=== PATIENT | male | born 1960 | race Caucasian/White ===

== ENCOUNTER 2018-06-12 04:40 | Emergency (ER) | payer BC, SELFPAY ==
[2018-06-12 04:40] VITALS: BP 122/87; PULSE 83; RESP 22; TEMP 36.6; O2SAT 95; BMI 23.1
--- NOTE | 2018-06-12 04:46 | ED_ITS ---
HPI - Chest Pain General Chief Complaint: Chest Pain Stated Complaint: POSSIBLE HEART ATTACK Time Seen by Provider: 06/12/18 04:41 Source: patient and family Mode of arrival: ambulatory Limitations: no limitations History of Present Illness HPI narrative: 58-year-old male with long history of smoking presents to the emergency department with 7/10 crushing anterior chest pain that started at rest. This is associated with significant nausea, shortness of breath and diaphoresis. His pain radiates from left to right across his chest. He denies any history of cardiac illness. He has had no recent illness. MD complaint: chest pain Onset (ago): minute(s) Time: 04:20 Duration: constant Onset: during rest Pain location: substernal, left chest and right chest Severity: severe Severity scale (1-10): 7 Quality: tightness, aching and heaviness Pain radiation: RUE and LUE Relieving factors: nothing Exacerbating factors: nothing Associated symptoms: nausea, diaphoresis and dyspnea Treatments prior to arrival chest pain: none Related Data Allergies Allergy/AdvReac Type Severity Reaction Status Date / Time No Known Drug Allergies Allergy Verified 06/12/18 05:05 Review of Systems Review of Systems All systems reviewed & are unremarkable except as noted in HPI and below Constitutional Denies chills, Denies fever(s), Denies lethargy and Denies weakness Eyes Denies change in vision, Denies eye discharge, Denies irritation and Denies loss of vision ENT Ears, Nose, Mouth, and Throat: Denies change in voice, Denies neck pain and Denies sore throat Cardiovascular Reports chest pain, Denies irregular heart rhythm, Reports lightheadedness, Denies palpitations, Reports dyspnea, Denies dyspnea on exertion and Denies orthopnea Respiratory Denies cough, Reports dyspnea, Denies dyspnea on exertion and Denies wheezing Gastrointestinal Gastrointestinal: Denies abdominal pain, Denies change in bowel habits, Denies diarrhea, Reports nausea and Denies vomiting Genitourinary Denies hematuria, Denies flank pain, Denies urinary incontinence and Denies urinary urgency Musculoskeletal Denies neck pain Integumentary/Breasts Denies pruritus, Denies erythema, Denies rash and Denies wounds Comments: Diaphoresis Neurologic Denies confusion, Denies loss of vision and Denies weakness Psychiatric Denies anxiety, Denies confusion, Denies depression, Denies homicidal ideation and Denies suicidal ideation Endocrine Denies palpitations Hematologic/Lymphatic Denies easy bruising Allergic/Immunologic Denies wheezing PFSH Social History Smoking Status: Current every day smoker Exam Narrative Exam Narrative: 58-year-old male in severe distress, short of breath, clutching his chest, diaphoretic Initial Vital Signs Initial Vital Signs: Vital Signs Temperature 97.8 F 06/12/18 04:40 Pulse Rate 83 06/12/18 04:40 Respiratory Rate 22 06/12/18 04:40 Blood Pressure 122/87 H 06/12/18 04:40 Pulse Oximetry 95 06/12/18 04:40 Const General: cooperative, well developed and acute distress Nutritional Appearance: well nourished Orientation: alert, awake, oriented x3 and not confused HENMT Head: normocephalic and atraumatic Ears: external ears normal and TM's normal bilaterally Nose: external nose normal and No nasal discharge Face and sinus: sinuses nontender, face symmetric, no sinus tenderness and No dry mucous membranes Mouth: oral mucosae normal and moist mucous membranes Teeth and gingiva: dentition normal Throat: tonsils normal and uvula midline Eyes General: appearance normal, both eyes and all related structures Eyelids: eyelids normal Conjunctivae: conjunctivae normal Sclera: sclerae normal Pupils: PERRL EOM: EOM intact bilaterally Neck Neck: normal visual inspection, trachea midline, No lymphadenopathy, No midline deformity and No JVD Lymphatic: No lymphedema Chest Chest: normal inspection of the chest Resp Effort & Inspection: normal respiratory effort, able to speak in complete sentences, no respiratory distress and no use of accessory muscles Auscultation: clear to auscultation bilaterally, no rales, no rhonchi and no wheezes Cardio Rate: regular rate Rhythm: regular rhythm Heart Sounds: no click, no gallops, no murmurs and no rubs Pulses: normal peripheral pulses GI Inspection: non-distended Palpation: soft, no hepatosplenomegaly, No guarding, No pulsatile mass and No tender Auscultation: normal bowel sounds Back/Spine/Pelvis Back: No CVA tenderness Cervical Spine: cervical ROM normal and No pain with cervical ROM Thoracic/Lumbar Spine: thoracic and lumbar spine normal to inspection Skin General: no rashes or lesions noted, No jaundice, No petechiae and pallor Other: Diaphoretic Neuro General: alert, oriented x3, gait normal and no focal motor deficits Speech: speech normal Extrem General: full ROM, no clubbing, cyanosis or edema, no pedal edema and no calf tenderness Psych Appearance: well kempt Mental Status: mental status grossly normal Attitude: cooperative Thought Content: normal and suicidality Judgment: judgment good Course Orders Ordered: Discontinued Medications Aspirin (Aspirin Chew) 324 mg PO NOW ONE Stop: 06/12/18 04:42 Last Admin: 06/12/18 04:51 Dose: 324 mg Heparin Sodium (Porcine) (Heparin) 4,800 unit IV NOW ONE Stop: 06/12/18 04:42 Last Admin: 06/12/18 05:01 Dose: 4,800 unit Sodium Chloride (Normal Saline 0.9%) 1,000 mls @ 150 mls/hr IV CONT ANDERSON Last Infusion: 06/12/18 05:07 Dose: 150 mls/hr Admin: 06/12/18 04:53 Dose: 150 mls/hr Heparin Sodium/Dextrose (Heparin Drip) 25,000 unit in 500 mls @ 0 mls/hr IV CONT ANDERSON; Protocol Last Admin: 06/12/18 05:13 Dose: 12 units/kg/hr, 19.051 mls/hr Metoprolol Tartrate (Lopressor) 5 mg IV NOW ONE Stop: 06/12/18 04:42 Last Admin: 06/12/18 04:56 Dose: 5 mg Nitroglycerin (Nitrostat) 0.4 mg SL [id number] PRN PRN Reason: Chest Pain Last Admin: 06/12/18 04:57 Dose: 0.4 mg Admin: 06/12/18 04:51 Dose: 0.4 mg Reevaluation(s) Reevaluation #1: pain down to 4/10 after 1 NG Time: 04:52 Consultations Consultation #1: Dr. Salinas ([facility] ED) happy to accept and will activate STEMI protocol Time: 04:53 MDM - Chest Pain Differential Diagnosis Likely stable angina, unstable angina pectoris, atypical chest pain and st elevation myocardial infarction Lab Data Result diagrams: 06/12/18 Unknown 06/12/18 Unknown Lab Results 06/12/18 06/12/18 Range/Units Unknown Unknown WBC 9.8 (4.5-11.0) X10^3/uL RBC 5.73 (4.5-5.9) X10^6/uL Hgb 17.8 H (13.5-17.5) g/dL Hct 52.4 (41-53) % MCV 91.4 (80-100) fL MCH 31.1 (26-34) PG MCHC 34.0 (30-36) % RDW 15.1 H (11.6-14.8) % Plt Count 320 (150-400) X10^3/uL Neut % (Auto) 51.0 (50-75) % Lymph % (Auto) 35.7 (25-40) % [place] % (Auto) 9.1 (3-14) % Eos % (Auto) 2.8 (2-4) % Baso % (Auto) 1.4 (0-2) % Neut # (Auto) 5000 (0742-6097) /uL Sodium 145 (137-145) mmol/L Potassium 3.9 (3.4-5.1) mmol/L Chloride 109 H (98-107) mmol/L Carbon Dioxide 23 (22-32) mmol/L BUN 18 (9-20) mg/dL Creatinine 0.90 (0.66-1.25) mg/dL Estimated GFR > 60.0 (>60) mL/min BUN/Creatinine Ratio 20.0 (6-22) Glucose 206 H (80-110) mg/dL Calcium 9.6 (8.4-10.2) mg/dL Total Bilirubin 0.5 (0.2-1.3) mg/dL AST 21 (17-59) IU/L ALT 17 L (21-72) IU/L Alkaline Phosphatase 77 (38-126) U/L Total Creatine Kinase 50 L (55-170) U/L Troponin I 0.021 (0.01-0.034) ng/mL Total Protein 8.2 (6.3-8.2) g/dL Albumin 4.6 (3.5-5.0) g/dL Globulin 3.6 (1.7-4.1) g/dL Albumin/Globulin Ratio 1.3 (1.0-2.8) Lipase 216 (23-300) U/L ECG Data Attestation: I personally reviewed and interpreted this ECG as follows: Interpretation: NSR. 92. ST elevations V3/V4/V5 Core Measures AMI core measures followed: Yes Discharge Plan Departure Patient Disposition: [facility] Clinical Impression: ST elevation (STEMI) myocardial infarction Discharge Date/Time: 06/12/18 05:07 Interventions: ED Discharge Assessment Last Done: 06/12/18 05:26
[2018-06-12 04:51] VITALS: BP 124/95; PULSE 99
[2018-06-12] MEDS: NITROGLYCERIN 0.4 MG SL TAB SL ×2 (04:51→04:57)
[2018-06-12] MEDS: ASPIRIN 81 MG TAB 324 MG PO (04:51)
[2018-06-12] MEDS: SODIUM CHLORIDE 0.9% 1,000 ML 150 ML IV (04:53)
[2018-06-12] MEDS: METOPROLOL TARTRATE 5 MG/5 ML INJ IV (04:56)
[2018-06-12 04:57] VITALS: BP 122/87; PULSE 83
[2018-06-12 04:57] LABS: Add Manual Diff / Slide Review NO; Basophils Percent Auto 1.4 % (0-2); Eosinophils Percent Auto 2.8 % (2-4); Hematocrit 52.4 % (41-53); Hemoglobin 17.8 g/dL (13.5-17.5); Lymphocytes Percent Auto 35.7 % (25-40); Mean Corpuscular Hemoglobin 31.1 PG (26-34); Mean Corpuscular Volume 91.4 fL (80-100); Monocytes Percent Auto 9.1 % (3-14); Neutrophils Absolute Auto 5000 /uL (3000-5900); Platelet Count 320 X10^3/uL (150-400); Red Blood Cell Count 5.73 X10^6/uL (4.5-5.9); Red Cell Distribution Width 15.1 % (11.6-14.8); White Blood Cell Count 9.8 X10^3/uL (4.5-11.0)
[2018-06-12] MEDS: HEPARIN 5,000 UNIT/ML VIAL 4800 UNIT IV (05:01)
[2018-06-12 05:07] LABS: Alanine Aminotransferase 17 IU/L (21-72); Albumin 4.6 g/dL (3.5-5.0); Albumin Globulin Ratio 1.3 (1.0-2.8); Alkaline Phosphatase 77 U/L (38-126); Aspartate Aminotransferase 21 IU/L (17-59); Bilirubin Total 0.5 mg/dL (0.2-1.3); Blood Urea Nitrogen 18 mg/dL (9-20); Calcium 9.6 mg/dL (8.4-10.2); Carbon Dioxide 23 mmol/L (22-32); Chloride 109 mmol/L (98-107); Creatine Kinase 50 U/L (55-170); Estimated Glomerular Filt Rate > 60.0 mL/min (>60); Globulin 3.6 g/dL (1.7-4.1); Glucose 206 mg/dL (80-110); HEMOLYSIS 33 (0-50); Lipase 216 U/L (23-300); Potassium 3.9 mmol/L (3.4-5.1); Sodium 145 mmol/L (137-145); Total Protein 8.2 g/dL (6.3-8.2)
[2018-06-12] MEDS: HEPARIN DRIP 25,000 UNIT/500 ML IV.SOLN 19.051 UNIT IV (05:13)
--- NOTE | 2018-06-12 05:14 | PC.NURSE ---
went to pt vehicle after requested to help from front desk agent. found pt alert and oriented answering questions appropriatley. pt stated he was unable to walk steady and pt friend confirmed pt collapsed on him a couple times. pt pivot transfered to a stretcher brought out by staff. pt cold and clammy. pt remained alert and oriented during treatment including several IV start attempts and ekg. pt medicated and transfered to [facility] stretcher. pt left alert and oriented and reporting I feel better than when I got in here.
[2018-06-12 05:18] LABS: Troponin I 0.021 ng/mL (0.01-0.034)
== END 2018-06-12 05:07 | disposition short-term general hospital (02) ==
PROVIDERS: Emergency Provider Emergency Medicine
DX: I21.3 ST elevation (STEMI) myocardial infarction of unspecified site (principal)
CPT/HCPCS: 80053; 82550; 82553; 83690; 84484; 85025; 93005; 96374; 96375; 99283; 99284; J1644